=== PATIENT | female | born 1965 | race Caucasian/White ===

== ENCOUNTER 2018-04-03 15:21 | Inpatient (IN) | payer OTHER ==
[~2018-04-03] VITALS: Ht 162.6 cm; Wt 83.0 kg
[2018-04-03 15:44] VITALS: Ht 162.6 cm; Wt 83.0 kg
[2018-04-03 16:54] LABS: BASOPHIL % 0.8 % (0-2)
[2018-04-03 16:59] LABS: PLATELET COUNT 56 x10^3mcL (130-400); RED CELL DISTRIBUTION WIDTH 14.9 % (11.5-14.5)
[2018-04-03 17:11] LABS: ALKALINE PHOSPHATASE 113 U/L (46-116); ALT/SGPT 109 U/L (14-59); AST/SGOT 110 U/L (15-37); BILIRUBIN TOTAL 2.33 mg/dL (0.20-1.00); CALCIUM 8.4 mg/dL (8.5-10.1); CARBON DIOXIDE 25.1 mmol/L (21-32); CHLORIDE SERUM 111 mmol/L (98-107); CREATININE SERUM 0.6 mg/dL (0.6-1.0); GFR1 > 60 mL/min; GLUCOSE SERUM 85 mg/dL (74-106); LIPASE 199 IU/L (73-393); POTASSIUM SERUM 3.5 mmol/L (3.5-5.1); TOTAL PROTEIN, SERUM 6.5 g/dL (6.4-8.2); TRIGLYCERIDES 55 mg/dL (<150)
[2018-04-03 17:12] LABS: ALBUMIN 2.8 g/dL (3.4-5.0); CHOLESTEROL 124 mg/dL (<200); CHOLESTEROL/HDL RATIO 1.5; HDL CHOLESTEROL 81 mg/dL (40-60)
[2018-04-03 17:20] LABS: T3 TOTAL 1.32 ng/mL
[2018-04-03 17:25] LABS: SODIUM SERUM 137 mmol/L (136-145)
[2018-04-03 17:41] LABS: FREE T4 0.93 ng/dL (0.76-1.46); FREE THYROXINE INDEX 2.3 ug/dL (1.4-4.5); T4(THYROXINE) 7.1 ug/dL (4.7-13.3)
[2018-04-03] MEDS ORDERED: EPCLUSA 400 MG1 EACH PO (18:45)
[2018-04-03 21:03] VITALS: BP 98/53
[2018-04-04 05:40] VITALS: BP 100/55
[2018-04-04 06:25] LABS: CARBON DIOXIDE 24.1 mmol/L (21-32); CHLORIDE SERUM 112 mmol/L (98-107); CREATININE SERUM 0.6 mg/dL (0.6-1.0); GFR1 > 60 mL/min; GLUCOSE SERUM 81 mg/dL (74-106); POTASSIUM SERUM 3.7 mmol/L (3.5-5.1); SODIUM SERUM 145 mmol/L (136-145)
[2018-04-04 06:48] LABS: BASOPHIL % 0.4 % (0-2)
[2018-04-04 07:18] LABS: RED CELL DISTRIBUTION WIDTH 14.7 % (11.5-14.5)
[2018-04-04 07:20] LABS: PLATELET COUNT 23 x10^3mcL (130-400)
[2018-04-04 09:56] VITALS: BP 96/55
[2018-04-04 12:23] VITALS: BP 106/55
[2018-04-04 16:38] VITALS: BP 98/43
[2018-04-05 05:58] VITALS: BP 100/57
[2018-04-05 09:23] VITALS: BP 119/81
[2018-04-05 16:31] VITALS: BP 97/55
[2018-04-06 05:45] VITALS: BP 91/54
[2018-04-06 06:34] LABS: BASOPHIL % 0.1 % (0-2); RED CELL DISTRIBUTION WIDTH 13.6 % (11.5-14.5)
[2018-04-06 06:43] LABS: CALCIUM 8.3 mg/dL (8.5-10.1); CARBON DIOXIDE 24.1 mmol/L (21-32); CHLORIDE SERUM 107 mmol/L (98-107); CREATININE SERUM 0.7 mg/dL (0.6-1.0); GFR1 > 60 mL/min; GLUCOSE SERUM 134 mg/dL (74-106); POTASSIUM SERUM 4.2 mmol/L (3.5-5.1); SODIUM SERUM 136 mmol/L (136-145)
[2018-04-06 07:56] LABS: PLATELET COUNT 45 x10^3mcL (130-400)
[2018-04-06 13:59] VITALS: BP 97/61
[2018-04-06 17:05] VITALS: BP 94/50
[2018-04-06 21:24] VITALS: BP 106/60
[2018-04-06 21:26] VITALS: BP 105/62
[2018-04-07 05:49] VITALS: BP 95/56
[2018-04-07 07:33] LABS: CHLORIDE SERUM 109 mmol/L (98-107); CREATININE SERUM 0.7 mg/dL (0.6-1.0); GFR1 > 60 mL/min; GLUCOSE SERUM 119 mg/dL (74-106); POTASSIUM SERUM 4.3 mmol/L (3.5-5.1); SODIUM SERUM 139 mmol/L (136-145)
[2018-04-07 08:42] LABS: BASOPHIL % 0.1 % (0-2); RED CELL DISTRIBUTION WIDTH 13.5 % (11.5-14.5)
[2018-04-07 09:45] VITALS: BP 111/65
[2018-04-07 10:11] LABS: BILIRUBIN DIRECT 0.4 mg/dL (0.0-0.2); BILIRUBIN TOTAL 0.9 mg/dL (0.20-1.00)
[2018-04-07 10:12] LABS: ALBUMIN 2.4 g/dL (3.4-5.0); TOTAL PROTEIN, SERUM 5.2 g/dL (6.4-8.2)
[2018-04-07 15:14] LABS: PLATELET COUNT 37 x10^3mcL (130-400)
[2018-04-07 16:45] VITALS: BP 90/49
[2018-04-07 18:20] VITALS: BP 107/61
[2018-04-07 21:08] VITALS: BP 95/46
[2018-04-08 05:47] VITALS: BP 97/59
[2018-04-08 06:29] LABS: CALCIUM 7.6 mg/dL (8.5-10.1); CARBON DIOXIDE 25.4 mmol/L (21-32); CHLORIDE SERUM 111 mmol/L (98-107); CREATININE SERUM 0.8 mg/dL (0.6-1.0); GFR1 > 60 mL/min; GLUCOSE SERUM 146 mg/dL (74-106); POTASSIUM SERUM 4.7 mmol/L (3.5-5.1); SODIUM SERUM 142 mmol/L (136-145)
[2018-04-08 06:38] LABS: RED CELL DISTRIBUTION WIDTH 14.8 % (11.5-14.5)
[2018-04-08 10:00] VITALS: BP 108/58
[2018-04-08 10:53] LABS: ATYPICAL LYMPH 3 %; BAND NEUTROPHIL 1 % (0-10); MONOCYTE 3 % (0-7); SEGMENTED NEUTROPHILS 88 % (37-75)
[2018-04-08 10:54] LABS: PLATELET MORPHOLOGY PLATELETS DECREASED; rbc morphology (normal/abnorm) ABNORMAL (NORMAL)
[2018-04-08 11:02] LABS: PLATELET COUNT 38 x10^3mcL (130-400)
[2018-04-08 11:59] VITALS: BP 108/58
== END 2018-04-08 14:00 | disposition other institution (70) | DRG 386 ==
LOC: ED 15:21 → MU 18:36
PROVIDERS: Internal Medicine; Specialist; ADMIT Internal Medicine
PROC: 0DJ08ZZ Inspection of Upper Intestinal Tract, Via Natural or Artificial Opening Endoscopic (ICD-10-PCS; principal; 2018-04-07 08:00)
DX: K51.90 Ulcerative colitis, unspecified, without complications (principal); K56.7 Ileus, unspecified; K76.6 Portal hypertension; I85.00 Esophageal varices without bleeding; K56.600 Partial intestinal obstruction, unspecified as to cause; B18.2 Chronic viral hepatitis C; K29.70 Gastritis, unspecified, without bleeding; K44.9 Diaphragmatic hernia without obstruction or gangrene; I50.9 Heart failure, unspecified; I11.0 Hypertensive heart disease with heart failure; K31.89 Other diseases of stomach and duodenum; K70.30 Alcoholic cirrhosis of liver without ascites; D69.6 Thrombocytopenia, unspecified; Z68.31 Body mass index [BMI] 31.0-31.9, adult; Z79.899 Other long term (current) drug therapy
CPT/HCPCS: 43235; 83880; 84439; C9113; J1200; J1610; J1885; J1956; J2060; J2250; J2270; J2310; J2405; J2550; J2920; J3010; J3490; J7042; J7050; Q0092; Q9967

== ENCOUNTER 2018-12-23 13:53 | Emergency (ER) | payer OTHER ==
[~2018-12-23] VITALS: Ht 162.6 cm; Wt 94.3 kg
[~2018-12-23 13:53] MED LIST: EPCLUSA 400 MG1 EACH PO
[2018-12-23 14:03] VITALS: Ht 162.6 cm; Wt 94.3 kg
[2018-12-23 14:42] LABS: CALCIUM 7.3 mg/dL (8.5-10.1); CARBON DIOXIDE 24.8 mmol/L (21-32); CHLORIDE SERUM 110 mmol/L (98-107); CREATININE SERUM 0.6 mg/dL (0.6-1.0); GFR1 > 60 mL/min; GLUCOSE SERUM 183 mg/dL (74-106); POTASSIUM SERUM 3.2 mmol/L (3.5-5.1); SODIUM SERUM 142 mmol/L (136-145)
[2018-12-23 14:47] LABS: ALKALINE PHOSPHATASE 85 U/L (46-116); ALT/SGPT 30 U/L (14-59); AST/SGOT 32 U/L (15-37); BILIRUBIN TOTAL 2.8 mg/dL (0.20-1.00)
[2018-12-23 14:48] LABS: ALBUMIN 2.6 g/dL (3.4-5.0); TOTAL PROTEIN, SERUM 5.1 g/dL (6.4-8.2)
[2018-12-23 15:11] LABS: RED CELL DISTRIBUTION WIDTH 14.7 % (11.5-14.5)
[2018-12-23 15:12] LABS: PLATELET COUNT 37 x10^3mcL (130-400)
[2018-12-23 16:34] VITALS: BP 100/57
[2018-12-23 17:02] LABS: UA SPECIFIC GRAVITY <=1.005 (1.005-1.035); microscopic required? YES; urine erythrocyte TRACE (NEGATIVE)
== END 2018-12-23 16:34 | disposition home or self-care (01) ==
LOC: ED 13:53
PROVIDERS: Emergency Medicine
DX: B34.9 Viral infection, unspecified (principal); J45.901 Unspecified asthma with (acute) exacerbation; E87.6 Hypokalemia; I10 Essential (primary) hypertension; E11.9 Type 2 diabetes mellitus without complications; B18.2 Chronic viral hepatitis C; K50.90 Crohn's disease, unspecified, without complications
CPT/HCPCS: 83880; 87804; J2930; J7030; J7613; J7644; Q0092